=== PATIENT | female | born 1975 | race Hispanic/Latino ===

== ENCOUNTER 2018-04-21 08:20 | Day surgery (SDC) | payer MEDICAID, OTHER ==
[~2018-04-21] VITALS: Ht 157.5 cm; Wt 60.3 kg
[~2018-04-21 08:20] MED LIST: PANT40TA25 PO
[2018-04-21 09:00] VITALS: BP 102/63
[2018-04-21] MEDS ORDERED: SODIUM CHLORIDE 0.9% 1000ML 1,000 ML IV ONE (09:25)
[2018-04-21] MEDS ORDERED: PROPOFOL 10 MG/ML 20ML VIAL IV ONE (09:59)
[2018-04-21] MEDS ORDERED: GLYCOPYRROLATE 0.2 MG/ML 5 ML VIAL ONE (10:02)
[2018-04-21 10:24] VITALS: BP 97/65
[2018-04-21 10:29] VITALS: BP 104/70
[2018-04-21 10:34] VITALS: BP 100/69
[2018-04-21 10:49] VITALS: BP 104/72
--- NOTE | 2018-04-21 11:10 | NUR ---
PT TOLERATED PROCEDURE WELL, NO C/O OF PAIN S/P PROCEDURE. EXPLAINED RESULTS OF PROCEDURE TO PT AFTER TALKING WITH . POST CARE INSTRUCTIONS GIVEN TO PT, BOTH AND PT VERBALIZED UNDERSTANDING. PT DRESSED ASSITED BY , ABLE TO TOLERATE DRINKING FLUIDS, AMBULATED PT TO RESTROOM WAS ABLE TO PASS GAS. PT PLACED IN WHEELCHAIR , DRIVEN HOME BY .
== END 2018-04-21 11:05 | disposition home or self-care (01) ==
LOC: ENDO 08:20 → DAH 08:20 → ENDO 11:05
PROVIDERS: ATTEND Internal Medicine
DX: K57.30 Diverticulosis of large intestine without perforation or abscess without bleeding (principal); K31.89 Other diseases of stomach and duodenum; K29.50 Unspecified chronic gastritis without bleeding; K21.0 Gastro-esophageal reflux disease with esophagitis; K31.7 Polyp of stomach and duodenum; Z79.899 Other long term (current) drug therapy; Z98.890 Other specified postprocedural states
CPT/HCPCS: 36415; 43239; 43251; 45378; 84703; 88305; A4606; J2704; J3490; J7030; 45380